=== PATIENT | female | born 1995 | race African-American/Black ===

== ENCOUNTER 2024-06-09 01:33 | Emergency (ER) | payer MEDICAID ==
[~2024-06-09] VITALS: Ht 162.6 cm; Wt 70.0 kg
[2024-06-09 01:39] VITALS: TEMP 98.4; O2SAT 98
[2024-06-09 04:15] VITALS: BP 119/74; PULSE 89; RESP 12; O2SAT 100
== END 2024-06-09 04:40 | disposition home or self-care (01) ==
LOC: EDBD 01:33 → ER 01:33
DX: R44.0 Auditory hallucinations (principal); F15.90 Other stimulant use, unspecified, uncomplicated; J45.909 Unspecified asthma, uncomplicated
CPT/HCPCS: 81025; 99283

== ENCOUNTER 2024-06-09 07:16 | Emergency (ER) | payer MEDICAID ==
[~2024-06-09] VITALS: Ht 162.6 cm; Wt 75.0 kg
[2024-06-09 07:37] VITALS: O2SAT 99
[2024-06-09 08:25] VITALS: BP 148/81; PULSE 100; RESP 16; TEMP 98.3; O2SAT 99
== END 2024-06-09 11:01 | disposition home or self-care (01) ==
LOC: ER 07:16
DX: Z13.89 Encounter for screening for other disorder (principal); F15.90 Other stimulant use, unspecified, uncomplicated; J45.909 Unspecified asthma, uncomplicated
CPT/HCPCS: 99281

== ENCOUNTER 2024-06-09 12:40 | Emergency (ER) | payer MEDICAID ==
[~2024-06-09] VITALS: Ht 160 cm; Wt 61.0 kg
[2024-06-09 12:45] VITALS: O2SAT 98
[2024-06-09] MEDS: LORAZEPAM 0.5MG TABLET PO ONE (13:15)
[2024-06-09 14:28] LABS: BASOPHILS % 0.4 % (0.0-2.0); EOSINOPHILS % 0.9 % (0.0-5.0); HEMATOCRIT. 39.9 % (36.0-48.0); HEMOGLOBIN. 13.6 g/dL (12.0-16.0); MEAN CORPUSCULAR HEMOGLOBIN 29.1 pg (28.0-32.0); MEAN CORPUSCULAR VOLUME 85.5 fL (81.0-99.0); MEAN PLATELET VOLUME 9.4 fl (7.4-10.4); MONOCYTES % 7.5 % (2.0-8.0); NEUTROPHILS % 64.2 % (40.0-76.0); PLATELET 246 x1000/uL (130-400); RED BLOOD CELL COUNT 4.67 mill/uL (4.2-5.4); RED CELL DISTRIBUTION WIDTH 13.1 % (11.6-14.6); WHITE BLOOD COUNT 6.3 x1000/uL (4.5-11.0)
[2024-06-09 14:36] LABS: CHLORIDE 105 mEq/L (98-107); POTASSIUM 3.5 mEq/L (3.5-5.1); SODIUM 137 mEq/L (136-145)
[2024-06-09 14:37] LABS: CALCIUM 9.9 mg/dL (8.7-10.4); CARBON DIOXIDE 24 mEq/L (21-32)
[2024-06-09 14:42] LABS: CREATININE 0.6 mg/dL (0.6-1.0); GLUCOSE 120 mg/dL (70-105); UREA NITROGEN BLOOD 12 mg/dL (9-23)
[2024-06-09 14:44] LABS: ACETAMINOPHEN < 2 ug/mL (10-30)
[2024-06-09 14:47] LABS: HCG SCREEN NEGATIVE
[2024-06-09 14:53] LABS: ETHANOL BLOOD < 10 mg/dL (<10)
[2024-06-09 18:01] LABS: *AMPHETAMINES SCREEN URINE PRESUMPTIVE POSITIVE (NEGATIVE); *BARBITURATES SCREEN URINE NEGATIVE (NEGATIVE); *BENZODIAZEPINES SCREEN URINE NEGATIVE (NEGATIVE); *COCAINE SCREEN URINE NEGATIVE (NEGATIVE); CANNABINOID URINE SCREEN NEGATIVE (NEGATIVE); ECSTASY MDMA SCREEN URINE NEGATIVE (NEGATIVE); METHADONE URINE SCREEN NEGATIVE (NEGATIVE); OPIATES URINE SCREEN NEGATIVE (NEGATIVE); PHENCYCLIDINE URINE SCREEN NEGATIVE (NEGATIVE)
[2024-06-10] MEDS: LORAZEPAM 0.5MG TABLET PO ONE (01:08)
[2024-06-10 07:23] VITALS: TEMP 36.72516
[2024-06-10 11:47] VITALS: BP 129/81; PULSE 91; RESP 16; O2SAT 99
== END 2024-06-10 11:47 | disposition home or self-care (01) ==
LOC: ER 12:40
DX: R44.0 Auditory hallucinations (principal); F15.10 Other stimulant abuse, uncomplicated; J45.909 Unspecified asthma, uncomplicated
CPT/HCPCS: 36415; 80048; 80305; 80307; 80320; 80329; 84703; 85025; 99285; G0480

== ENCOUNTER 2025-10-05 08:28 | Emergency (ER) | payer MEDICAID ==
[~2025-10-05] VITALS: Ht 162.6 cm; Wt 65.0 kg
[2025-10-05 08:36] VITALS: BP 115/79; PULSE 81; RESP 18; TEMP 37.1; O2SAT 100; O2SAT 99
== END 2025-10-05 14:31 | disposition left against medical advice (07) ==
LOC: ER 08:28
DX: F14.90 Cocaine use, unspecified, uncomplicated (principal); F17.210 Nicotine dependence, cigarettes, uncomplicated; J45.909 Unspecified asthma, uncomplicated; Z59.00 Homelessness unspecified
CPT/HCPCS: 99282